=== PATIENT | female | born 1965 | race Caucasian/White ===

== ENCOUNTER 2021-08-12 09:08 | Outpatient (CLI) | payer BC, SELFPAY ==
--- NOTE | 2021-08-12 09:30 | USCV_ITS ---
Radha Ortiz Age: 56 Gender: F : 1965 Exam Date: 08/12/2021 09:44 Ordering Phys: Kimberly Monsivais MD ([email or web address]) Technologist: Helen Benitez Exam Location: [facility] [place] Indication: SHORTNESS OF BREATH BP: 106 / 60 HR: 83 Rhythm: Sinus Technical Quality: Adequate MEASUREMENTS (Male / Female) Normal Values 2D ECHO RV Chamber Size 2.8 cm LV Ejection Fraction MOD 2C 60.1 % LV Ejection Fraction 2C AL 62.4 % LA Width 2.8 cm LA Height 4.4 cm RA Width 2.5 cm RA Height 4.2 cm DOPPLER AV Peak Velocity 125.0 cm/s LVOT Peak Velocity 101.0 cm/s MV Area PHT 3.7 cm squared Mitral E to A Ratio 1.0 MV E' Velocity 38.5 cm/s Mitral E to MV E' Ratio 5.8 Mitral E to LV E' Lateral Ratio 5.4 Mitral E to LV E' Septal Ratio 6.2 TR Peak Velocity 180.0 cm/s TR Peak Gradient 13.0 mmHg TV Peak E Velocity 39.0 cm/s FINDINGS Left Ventricle Normal left ventricular cavity size. Normal left ventricular systolic function. No regional wall motion abnormalities. Left ventricular ejection fraction is estimated at 60 %. Grade I/IV diastolic dysfunction (abnormal relaxation filling pattern), normal to mildly elevated filling pressures. Right Ventricle The right ventricle is normal in size and function. RVSP could not be calculated due to incomplete tricuspid regurgitation velocity profile. Right Atrium The right atrium is normal in size. Left Atrium The left atrium is normal in size. Mitral Valve Structurally normal mitral valve without significant stenosis or prolapse. There is no mitral regurgitation. Aortic Valve Structurally normal aortic valve without significant sclerosis or stenosis. There is no aortic regurgitation. Tricuspid Valve Structurally normal tricuspid valve without significant stenosis or regurgitation. Pulmonic Valve Structurally normal pulmonic valve without significant stenosis. There is no pulmonic regurgitation. Pericardium Normal pericardium without effusion. Aorta Normal ascending aorta dimension. CONCLUSIONS 1-Normal left ventricular cavity size. Normal left ventricular systolic function. No regional wall motion abnormalities. Left ventricular ejection fraction is estimated at 60 %. Grade I/IV diastolic dysfunction (abnormal relaxation filling pattern), normal to mildly elevated filling pressures. 2-There is no pericardial effusion. 3-No significant valve abnormalities. 4-Right atrial pressure is around 5 mm of mercury. 5-There are no prior echocardiogram studies to compare. Kimberly Monsivais MD (Electronically Signed) Final Date: 13 August 2021 21:29 S
== END 2021-08-12 09:09 | disposition home or self-care (01) ==
PROVIDERS: Visit Provider Internal Medicine Cardiovascular Disease
DX: R06.02 Shortness of breath (principal); R07.9 Chest pain, unspecified
CPT/HCPCS: 93306

== ENCOUNTER 2022-04-24 07:51 | Outpatient (CLI) | payer BC, SELFPAY ==
--- NOTE | 2022-04-24 07:59 | MM_ITS ---
WS: [id number] BILATERAL SCREENING DIGITAL BREAST MAMMOGRAPHY WITH JOVANA DISPLACEMENT VIEWS. CAD PERFORMED. HISTORY: SCREENING COMPARISON: None available. Bilateral craniocaudal and mediolateral oblique views are performed with tomosynthesis and SM. Jovana displacement views in CC and MLO projection also performed. Breasts composition: There are scattered areas of fibroglandular density. Implants are intact and re tropectoral. Partial calcification and encapsulation surrounding the implants. No suspicious mass or calcification within the breast parenchyma. MM/[id number] IMPRESSION: BI-RADS: 2-Benign FOLLOW-UP: 1 Year Follow-up
== END 2022-04-24 07:52 | disposition home or self-care (01) ==
PROVIDERS: Visit Provider Nurse Practitioner Family
DX: Z12.31 Encounter for screening mammogram for malignant neoplasm of breast (principal)
CPT/HCPCS: 77063; 77067

== ENCOUNTER 2022-05-11 09:45 | Outpatient (CLI) | payer BC, SELFPAY ==
--- NOTE | 2022-05-11 09:55 | XR_ITS ---
WS: [id number] XR hip LT 2-3V wo/w pel* [id number] REASON FOR EXAM: PAIN IN L HIP/OSTEOARTHRITIS FINDINGS: No fracture or focal bone lesion. Moderate narrowing of the joint space with subchondral sclerosis, cystic change and moderate to large marginal osteophytes in the acetabulum and femoral head. No significant soft tissue abnormality. XR/XR hip LT 2-3V wo/w pel* [id number] IMPRESSION: Moderate osteoarthritis of the left hip as above.
== END 2022-05-11 09:46 | disposition home or self-care (01) ==
PROVIDERS: PCP Nurse Practitioner Family; Visit Provider Nurse Practitioner Family
DX: M16.12 Unilateral primary osteoarthritis, left hip
CPT/HCPCS: 73502

== ENCOUNTER 2024-01-17 09:48 | Outpatient (CLI) | payer BC, SELFPAY ==
--- NOTE | 2024-01-17 09:58 | MM_ITS ---
WS: [id number] VIEWS: MLO and CC views both breasts. 3D digital tomosynthesis is also included in this exam. Comparison made with prior exam of 07/29/2016, 04/24/2022.. Findings: There was no sign of mass, architectural distortion or suspicious calcification in either breast. Sta ble appearing bilateral skin changes. There are scattered areas of fibroglandular density. Partially encapsulated intact bilateral breast implants stable in appearance. Impression: MM/[place] [id number] BI-RADS: 2-Benign finding. FOLLOW-UP: 1 Year Follow-up This mammogram was also analyzed by the Computer Aided Detection System R2 Imag e Playground Monitor.
== END 2024-01-17 09:49 | disposition home or self-care (01) ==
LOC: RAD 09:48
PROVIDERS: PCP Nurse Practitioner Family; Visit Provider Nurse Practitioner Family
DX: Z12.31 Encounter for screening mammogram for malignant neoplasm of breast (principal)
CPT/HCPCS: 77063; 77067

== ENCOUNTER 2025-01-19 09:48 | Outpatient (CLI) | payer BC, SELFPAY ==
--- NOTE | 2025-01-19 09:49 | MM_ITS ---
WS: [id number] BILATERAL SCREENING DIGITAL BREAST MAMMOGRAPHY WITH JOVANA DISPLACEMENT VIEWS. CAD PERFORMED. HISTORY: SCREENING COMPARISON: 01/17/2024, 04/24/2022 Bilateral craniocaudal and mediolateral oblique views are performed with tomosynthesis and SM. Jovana displacement views in CC and MLO projection also performed. Breasts composition: There are scattered areas of fibroglandular density. Retropectoral implants are intact with partial capsular contraction. Mild bulging of the medial LEFT implant. No suspicious mass or grouping of calcification within either breast. MM/MM [facility] tomosynthesis [id number] IMPRESSION: BI-RADS: 2 - Benign. FOLLOW-UP: 1 Year Follow-up
== END 2025-01-19 09:49 | disposition home or self-care (01) ==
PROVIDERS: PCP Nurse Practitioner Family; Visit Provider Nurse Practitioner Family
DX: Z12.31 Encounter for screening mammogram for malignant neoplasm of breast (principal); R92.323 Mammographic fibroglandular density, bilateral breasts; Z98.82 Breast implant status; N64.89 Other specified disorders of breast
CPT/HCPCS: 77063; 77067

== ENCOUNTER 2025-08-20 07:55 | Outpatient (CLI) | payer BC, SELFPAY ==
--- NOTE | 2025-08-20 | ECG_ITS ---
[facility] Test Date: 2025-08-20 Pat Name: Radha Ortiz Department: Room: Gender: Female Pile Operator: : 1965 Requested By: Rubén Avila Order Number: [id number] Reading MD: Interpretive Statements Lung unchanged pre/post procedure; Intraprocedure shortess of breath; Symptoms resoled by discharge; Symptoms resoled by discharge [email or web address]
[2025-08-20 07:59] VITALS: BMI 24.7
[2025-08-20 09:47] VITALS: BP 121/72; PULSE 91
== END 2025-08-20 07:56 | disposition home or self-care (01) ==
PROVIDERS: PCP Nurse Practitioner Family; Visit Provider Internal Medicine
DX: R07.9 Chest pain, unspecified (principal); R06.02 Shortness of breath
CPT/HCPCS: 36415; 78452; 93017; 93306; A9500